=== PATIENT | male | born 1980 | race Caucasian/White ===

== ENCOUNTER 2018-04-29 23:23 | Observation (INO) ==
[2018-04-29] MEDS ORDERED: SODIUM CHLORIDE 0.9% 1,000 ML IV STA (23:30)
[2018-04-29] MEDS ORDERED: DIPH/TET/ACEL PERT BOOSTER VACCINE 0.5 ML VIAL IM ONE (23:31)
[2018-04-29 23:40] LABS: Basophils # 0.1 10*3/uL (0.0-0.2); Basophils % 0.6 % (0.0-0.8); Eosinophils % 0.3 % (0.00-10.9); Hematocrit 41.7 VOL% (42.0-52.0); Hemoglobin 13.4 GM/DL (14.0-18.0); Immature Granulocytes % 0.4 %; Immature Granulocytes Absolute 0.05 #; Lymphocytes % 35.1 % (21.2-54.2); Mean Corpuscular HGB Conc 32.1 GM/DL (32-36); Mean Corpuscular Hemoglobin 32 PG (27-34); Mean Corpuscular Volume 100.2 FL (87-102); Mean Platelet Volume 9.1 FL (9.6-12.0); Monocytes # 0.9 10*3/uL (0.11-0.8); Monocytes % 8.1 % (1.7-12.7); Neutrophils # 6.4 10*3/uL (1.4-7.4); Neutrophils % 55.5 % (38.7-73.9); Platelet Count 464 T/CUMM (130-400); Red Blood Count 4.16 MC/CUMM (3.8-5.5); Red Cell Distribution Width 11.9 % (9.3-17.3); White Blood Count 11.5 T/CUMM (4-12)
[2018-04-30] LABS: Alanine Aminotransferase 76 U/L (16-61); Albumin 3.7 G/DL (3.4-5.0); Alkaline Phosphatase 113 U/L (45-117); Aspartate Amino Transferase 50 U/L (0-37); Bilirubin,Total < 0.39 MG/DL (0.2-1.0); Blood Urea Nitrogen 14 MG/DL (7-18); Calcium 9.3 MG/DL (8.5-10.1); Glucose 104 MG/DL (74-106); Osmolality,Calculated 273.8 MOS/KG (273-304); Potassium 3.5 MMOL/L (3.5-5.1); Sodium 137 MMOL/L (136-145); Total Protein 9.3 G/DL (6.4-8.3)
[2018-04-30 00:07] LABS: Apearance,Urine Slightly Hazy (Clear); Bilirubin,Urine Negative (Negative); Blood, Urine Large mg/dL (Negative); Glucose,Urine (UA) Negative (Negative); Hyaline Casts,Urine 1 /LPF (0-3); Ketones,Urine Negative (Negative); Mucus,Urine Occasional /LPF (Occasional); Nitrite,Urine Negative (Negative); Protein,Urine Negative; RBC,Urine 279 /HPF (0-4); Sperm,Urine Occasional /HPF (Negative); Urine Color Yellow (Yellow); Urine Specific Gravity 1.019 (1.001-1.035); Urine Urobilinogen < 2.0 EU/DL (0.2-1.0); WBC,Urine 3 /HPF (0-6)
[2018-04-30] MEDS ORDERED: LORazepam 2 MG/1 ML VIAL ONE (01:27)
[2018-04-30] MEDS ORDERED: MORPHINE 4 MG/1 ML VIAL ONE (01:28)
[2018-04-30] MEDS ORDERED: ONDANSETRON 4 MG/2 ML VIAL ONE (01:28)
[2018-04-30] MEDS ORDERED: ONDANSETRON 4 MG/2 ML VIAL IV PRN (02:22)
[2018-04-30] MEDS ORDERED: DEXTROSE 5% LACTATED RINGERS 1,000 ML IV SCH (02:30)
[2018-04-30] MEDS: MORPHINE 4 MG/1 ML VIAL IV PRN ×2 (03:02→12:27)
[2018-04-30] MEDS: KETOROLAC 30 MG/1 ML VIAL IV SCH ×4 (03:52→21:17)
[2018-04-30] MEDS ORDERED: cefOXitin 2,000 MG in SYRINGE 1 EACH IV SCH (06:00)
[2018-04-30 07:14] LABS: Basophils % 0.4 % (0.0-0.8); Eosinophils % 0.1 % (0.00-10.9); Hematocrit 31.6 VOL% (42.0-52.0); Hemoglobin 10.2 GM/DL (14.0-18.0); Immature Granulocytes % 0.2 %; Immature Granulocytes Absolute 0.02 #; Lymphocytes # 0.7 10*3/uL (1.4-4.0); Lymphocytes % 8.4 % (21.2-54.2); Mean Corpuscular HGB Conc 32.3 GM/DL (32-36); Mean Corpuscular Hemoglobin 32 PG (27-34); Mean Corpuscular Volume 99.1 FL (87-102); Mean Platelet Volume 9.4 FL (9.6-12.0); Monocytes # 0.4 10*3/uL (0.11-0.8); Monocytes % 4.3 % (1.7-12.7); Neutrophils # 7.2 10*3/uL (1.4-7.4); Neutrophils % 86.6 % (38.7-73.9); Platelet Count 259 T/CUMM (130-400); Red Blood Count 3.19 MC/CUMM (3.8-5.5); Red Cell Distribution Width 11.9 % (9.3-17.3); White Blood Count 8.4 T/CUMM (4-12)
[2018-04-30 07:46] LABS: Alanine Aminotransferase 53 U/L (16-61); Albumin 2.7 G/DL (3.4-5.0); Alkaline Phosphatase 71 U/L (45-117); Aspartate Amino Transferase 37 U/L (0-37); Bilirubin,Total < 0.39 MG/DL (0.2-1.0); Blood Urea Nitrogen 11 MG/DL (7-18); Calcium 7.8 MG/DL (8.5-10.1); Glucose 133 MG/DL (74-106); Potassium 3.4 MMOL/L (3.5-5.1); Sodium 136 MMOL/L (136-145); Total Protein 6.7 G/DL (6.4-8.3)
[2018-04-30] MEDS: PANTOPRAZOLE 40 MG VIAL IV SCH (09:29)
[2018-05-01] MEDS: KETOROLAC 30 MG/1 ML VIAL IV SCH ×4 (04:25→21:34)
[2018-05-01] MEDS: PANTOPRAZOLE 40 MG VIAL IV SCH (10:18)
[2018-05-01] MEDS: MORPHINE 4 MG/1 ML VIAL IV PRN (21:36)
[2018-05-02] MEDS: KETOROLAC 30 MG/1 ML VIAL IV SCH ×4 (05:44→21:27)
[2018-05-02] MEDS: PANTOPRAZOLE 40 MG VIAL IV SCH (09:44)
[2018-05-02] MEDS: MORPHINE 4 MG/1 ML VIAL IV PRN (10:53)
[2018-05-03] MEDS: KETOROLAC 30 MG/1 ML VIAL IV SCH ×2 (04:27→09:44)
[2018-05-03] MEDS: PANTOPRAZOLE 40 MG VIAL IV SCH (09:44)
[2018-05-03 12:04] VITALS: BP 125/69
== END 2018-05-03 12:50 | disposition home or self-care (01) ==
LOC: EDUNIT# → EDBD → N.ED 23:23 → N.EDINP 23:23 → N.3E 04-30 03:09
PROVIDERS: ADMIT Surgery; ATTEND Surgery